=== PATIENT | female | born 1985 | race Caucasian/White ===

== ENCOUNTER 2016-06-11 09:48 | Emergency (ER) | payer OTHER ==
[~2016-06-11] VITALS: Ht 172.7 cm; Wt 90.0 kg
[~2016-06-11 09:48] MED LIST: CLIN1CAP5 PO; NAPR500 PO
[2016-06-11 09:51] VITALS: BP 134/76; PULSE 110; RESP 14; TEMP 98; O2SAT 100
[2016-06-11 10:53] LABS: AUTOMATED NEUTROPHIL # 3.8 TH/MM3 (1.8-7.7); BASOPHIL % 0.4 % (0.0-2.0); EOSINOPHIL # 0.6 TH/MM3 (0-0.4); EOSINOPHIL % 8.6 % (0.0-4.0); HEMO FLAGS DIFF FINAL; LYMPH % 24.7 % (9.0-44.0); LYMPHOCYTE # 1.7 TH/MM3 (1.0-4.8); MEAN CELL VOLUME 83.5 FL (80.0-100.0); MEAN CORPUSCULAR HEMOGLOBIN 28.8 PG (27.0-34.0); MEAN CORPUSCULAR HGB CONC 34.4 % (32.0-36.0); MONO % 9.4 % (0.0-8.0); NEUT % 56.9 % (16.0-70.0); PLATELET COUNT 170 TH/MM3 (150-450); RED BLOOD COUNT 4.07 MIL/MM3 (4.00-5.30); RED CELL DISTRIBUTION WIDTH 14.8 % (11.6-17.2); WHITE BLOOD COUNT 6.7 TH/MM3 (4.0-11.0)
[2016-06-11 10:54] LABS: BLOOD, URINE NEG (NEG); GLUCOSE,URINE NEG (NEG); KETONE, URINE NEG (NEG); NITRITE,URINE NEG (NEG); SQUAMOUS EPITHELIAL CELL URINE 9 /hpf (0-5); URINE COLOR YELLOW (YELLW/STRAW)
[2016-06-11 10:55] LABS: COMMENT (UR) CULT NOT INDICATED; CULTURE IF INDICATED CULT NOT INDICATED
[2016-06-11 11:03] LABS: ALT (GPT) 39 U/L (10-53); ANION GAP 5 MEQ/L (5-15); AST (GOT) 32 U/L (15-37); BICARBONATE 28.6 MEQ/L (21.0-32.0); BLOOD UREA NITROGEN 9 MG/DL (7-18); CHLORIDE 105 MEQ/L (98-107); GLOMERULAR FILTRATION RATE 79 ML/MIN (>89); POTASSIUM 3.8 MEQ/L (3.5-5.1); SODIUM (NA) 139 MEQ/L (136-145)
[2016-06-11] MEDS ORDERED: METH40TA2 PO (11:07)
[2016-06-11] MEDS ORDERED: METH40TA PO (11:07)
[2016-06-11 11:39] LABS: ALKALINE PHOSPHATASE 109 U/L (45-117); TOTAL BILIRUBIN ADULT 0.2 MG/DL (0.2-1.0)
--- NOTE | 2016-06-11 12:22 | RADRPT ---
EXAM DATE/TIME: 06/11/2016 11:38 [facility] COMPARISON: No previous studies available for comparison. INDICATIONS: Constipation. MEDICAL HISTORY: None. SURGICAL HISTORY: section. ENCOUNTER: Initial ACUITY: 1 week PAIN SCORE: 0/10 LOCATION: Bilateral abdomen FINDINGS: Large amount of stool is seen throughout the colon. There is no free air. There are no abdominal ca lcifications. Bowel gas pattern is unremarkable. CONCLUSION: Large amount of stool throughout the colon consistent with constipation. River Matt MD FACR on June 11, 2016 at 12:05 Board Certified Radiologist. This report was verified electronically.
[2016-06-11] MEDS ORDERED: COLY4000S PO (13:05)
--- NOTE | 2016-06-11 13:05 | PD ---
HPI Chief Complaint: GI Complaint Time Seen by Provider: 11:14 Travel History International Travel<30 days: No Contact w/Intl Traveler<30days: No Traveled to known affect area: No History of Present Illness HPI Patient is a 31-year-old female who is on methadone for chronic pain presents emergency department today for constipation for the past month. Patient states she has not had a bowel movement in over a month now has tried multiple regimens at home including Fleet's enema and MiraLAX Dulcolax etc. Patient states nothing is working. She presents today because over the past week she started to have some intermittent cramping pain as well. She denies any blood in the stool nausea nor vomiting. No fevers. She states as a child she had problems with regular bowel movements as well. [facility] Past Medical History ?: Unknown LMP: 05/09/2016 Past Surgical History Section: Yes Social History Alcohol Use: No Tobacco Use: Yes Substance Use: No Allergies-Medications (Allergen,Severity, Reaction): Coded Allergies: No Known Allergies (Unverified , 06/11/16) Reported Meds & Prescriptions Reported Meds & Active Scripts Active Golytely 236 gm (Polyethylene Glycol/Electrolytes) 4,000 Ml Soln 4,000 Ml PO ONCE Reported Methadone (Methadone HCl) 40 Mg Tab 80 Mg PO DAILY Methadose (Methadone HCl) 40 Mg Tab 80 Mg PO DAILY Review of Systems Except as stated in HPI: all other systems reviewed are Neg Physical Exam Narrative GENERAL: Well-developed well-nourished in no apparent distress SKIN: Warm and dry. HEAD: Atraumatic. Normocephalic. EYES: Pupils equal and round. No scleral icterus. No injection or drainage. ENT: No nasal bleeding or discharge. Mucous membranes pink and moist. NECK: Trachea midline. No JVD. CARDIOVASCULAR: Regular rate and rhythm. No murmur appreciated. RESPIRATORY: No accessory muscle use. Clear to auscultation. Breath sounds equal bilaterally. GASTROINTESTINAL: Abdomen soft, non-tender, minimally distended. Hepatic and splenic margins not palpable. Rectal exam was performed with female nurse wastewater operator present at all times, no stool in the rectum. No gross blood. MUSCULOSKELETAL: No obvious deformities. No clubbing. No cyanosis. No edema. NEUROLOGICAL: Awake and alert. No obvious cranial nerve deficits. Motor grossly within normal limits. Normal speech. PSYCHIATRIC: Appropriate mood and affect; insight and judgment normal. Data Data Last Documented VS Vital Signs Date Time Temp Pulse Resp B/P Pulse Ox O2 Delivery O2 Flow Rate FiO2 06/11/16 09:51 98.0 110 14 134/76 100 Room Air Orders Complete Blood Count With Diff (06/11/16 10:03) Comprehensive Metabolic Panel (06/11/16 10:03) Urinalysis - C+S If Indicated (06/11/16 10:03) Ed Urine Pregnancytest Poc (06/11/16 10:03) Iv Access Insert/Monitor (06/11/16 10:03) Oxygen Administration (06/11/16 10:03) Oximetry (06/11/16 10:03) Lipase (06/11/16 10:03) Abdomen, Kub Only (06/11/16 ) Labs Laboratory Tests Test 06/11/16 10:30 White Blood Count 6.7 TH/MM3 Red Blood Count 4.07 MIL/MM3 Hemoglobin 11.7 GM/DL Hematocrit 34.0 % Mean Corpuscular Volume 83.5 FL Mean Corpuscular Hemoglobin 28.8 PG Mean Corpuscular Hemoglobin 34.4 % Concent Red Cell Distribution Width 14.8 % Platelet Count 170 TH/MM3 Mean Platelet Volume 7.0 FL Neutrophils (%) (Auto) 56.9 % Lymphocytes (%) (Auto) 24.7 % Monocytes (%) (Auto) 9.4 % Eosinophils (%) (Auto) 8.6 % Basophils (%) (Auto) 0.4 % Neutrophils # (Auto) 3.8 TH/MM3 Lymphocytes # (Auto) 1.7 TH/MM3 Monocytes # (Auto) 0.6 TH/MM3 Eosinophils # (Auto) 0.6 TH/MM3 Basophils # (Auto) 0.0 TH/MM3 CBC Comment DIFF FINAL Differential Comment Urine Color YELLOW Urine Turbidity CLEAR Urine pH 7.0 Urine Specific Smiley 1.029 Urine Protein TRACE mg/dL Urine Glucose (UA) NEG mg/dL Urine Ketones NEG mg/dL Urine Occult Blood NEG Urine Nitrite NEG Urine Bilirubin NEG Urine Urobilinogen 2.0 MG/DL Urine Leukocyte Esterase TRACE Urine RBC LESS THAN 1 /hpf Urine WBC 1 /hpf Urine Squamous Epithelial 9 /hpf Cells Microscopic Urinalysis Comment CULT NOT INDICATED Sodium Level 139 MEQ/L Potassium Level 3.8 MEQ/L Chloride Level 105 MEQ/L Carbon Dioxide Level 28.6 MEQ/L Anion Gap 5 MEQ/L Blood Urea Nitrogen 9 MG/DL Creatinine 0.85 MG/DL Estimat Glomerular Filtration 79 ML/MIN Rate Random Glucose 93 MG/DL Calcium Level 8.2 MG/DL Total Bilirubin 0.2 MG/DL Aspartate Amino Transf 32 U/L (AST/SGOT) Alanine Aminotransferase 39 U/L (ALT/SGPT) Alkaline Phosphatase 109 U/L Total Protein 7.1 GM/DL Albumin 3.2 GM/DL Lipase 192 U/L [facility] Medical Decision Making Medical Screen Exam Complete: Yes Emergency Medical Condition: Yes Differential Diagnosis Abdominal cramping, , constipation, opiate-induced constipation, slow transit constipation. Narrative Course Patient is 31 year old female with fair amount of stool in colon. On chronic methadone. Has tried multiple regimens at home. Discussed trial of golytely is appropriate but if inaffective will need surgical consultation. She is agreeable. Stable for discharge at this time. Discussed return to ED criteria including fevers and worsening abdominal pain. Discussed if no better in 24-48 hours after use of golytely then to return to ed. Discussed follow up with ceramic painter for reduction of methadone scripts. Diagnosis Primary Impression: Constipation Qualified Code: K59.00 - Constipation, unspecified constipation type Med/Other Pt SpecificInfo: Prescription(s) given Scripts Peg-Electrolytes (Golytely 236 gm)4,000 Ml Soln4,000 Ml PO ONCE #1 CONTAINER Ref 0 Prov:Ildefonso Ortega MD 06/11/16 Disposition: 01 DISCHARGE HOME Condition: Stable Ildefonso Ortega MD Jun 11, 2016 13:05
== END 2016-06-11 13:56 | disposition home or self-care (01) ==
LOC: NEPB 09:48
DX: K59.00 Constipation, unspecified (principal); G89.29 Other chronic pain; Z72.0 Tobacco use; Z79.891 Long term (current) use of opiate analgesic
CPT/HCPCS: 74000; 80053; 81001; 83690; 84703; 85025; 99283

== ENCOUNTER 2016-06-13 11:07 | Emergency (ER) | payer OTHER ==
[~2016-06-13] VITALS: Ht 172.7 cm; Wt 90.0 kg
[~2016-06-13 11:07] MED LIST changes: -CLIN1CAP5 PO; +COLY4000S PO; +METH40TA PO; +METH40TA2 PO; -NAPR500 PO
[2016-06-13 11:08] VITALS: BP 142/80; PULSE 106; RESP 17; TEMP 97.7; O2SAT 100
--- NOTE | 2016-06-13 12:16 | PD ---
HPI Chief Complaint: GI Complaint Time Seen by Provider: 12:16 Travel History International Travel<30 days: No Contact w/Intl Traveler<30days: No Traveled to known affect area: No History of Present Illness HPI 31-year-old female who was seen yesterday for similar complaints presents the emergency department with ongoing constipation issues. Patient has a history of constipation in the past and is currently treated on methadone 80 mg daily which exacerbates the problem. Patient was discharged yesterday with a prescription for GoLYTELY which she took last evening, with some success. She then developed vomiting and abdominal pain since she was concerned about a possible blockage. Currently she states her abdominal pain is minimal fill nervous about possible small bowel obstruction or obstruction in the colon. Patient denies fever, chills, or other symptoms. Patient denies any known drug allergies. PFSH Past Medical History Diminished Hearing: No Gastrointestinal Disorders: Yes (CONSTIPATION) Medical other: Yes ([facility]) ?: Not LMP: May Para: 1 Past Surgical History Section: Yes (X , 2005) Gynecologic Surgery: Yes (C-SEC X1) Social History Alcohol Use: No Tobacco Use: Yes (05/05 PPD) Substance Use: No (HX OF DRUG USE) Allergies-Medications (Allergen,Severity, Reaction): Coded Allergies: No Known Allergies (Unverified , 06/13/16) Reported Meds & Prescriptions Reported Meds & Active Scripts Active Reported Methadose (Methadone HCl) 40 Mg Tab 160 Mg PO DAILY Review of Systems Except as stated in HPI: all other systems reviewed are Neg General / Constitutional: No: Fever, Chills Eyes: No: Visual changes HENT: No: Headaches Cardiovascular: No: Chest Pain or Discomfort Respiratory: No: Shortness of Breath Gastrointestinal: Positive: Nausea, Vomiting (previously.), Abdominal Pain ( improved from previous.), Constipation (chronic recently worse.), No: Diarrhea , Hematemesis, Hematochezia, Indigestion, Dysphagia, Loss of Appetite Genitourinary: No: Dysuria Musculoskeletal: No: Pain Skin: No Rash Neurologic: No: Weakness Psychiatric: No: Depression Endocrine: No: Polydipsia Hematologic/Lymphatic: No: Easy Bruising Physical Exam Narrative GENERAL: Patient appears in no acute distress. She is sitting upright on the exam table with her legs crossed underneath her. SKIN: Warm and dry. Normal color. Normal turgor. HEAD: Atraumatic. Normocephalic. EYES: Pupils equal and round. No scleral icterus. No injection or drainage. ENT: No nasal bleeding or discharge. Mucous membranes pink and moist. NECK: Trachea midline. No JVD. CARDIOVASCULAR: Regular rate and rhythm. RESPIRATORY: No accessory muscle use. Clear to auscultation. Breath sounds equal bilaterally. GASTROINTESTINAL: Abdomen soft, mild diffuse tenderness, mildly distended. Hepatic and splenic margins not palpable. MUSCULOSKELETAL: Extremities without clubbing, cyanosis, or edema. No obvious deformities. NEUROLOGICAL: Awake and alert. No obvious cranial nerve deficits. Motor grossly within normal limits. Five out of 5 muscle strength in the arms and legs. Normal speech. PSYCHIATRIC: Appropriate mood and affect; insight and judgment normal. Data Data Last Documented VS Vital Signs Date Time Temp Pulse Resp B/P Pulse Ox O2 Delivery O2 Flow Rate FiO2 06/13/16 11:08 97.7 106 17 142/80 100 Orders Urinalysis - C+S If Indicated (06/13/16 12:27) Abdomen, Flat & Upright (06/13/16 ) Labs Laboratory Tests Test 06/13/16 12:30 Urine Color LIGHT-YELLOW Urine Turbidity CLEAR Urine pH 7.5 Urine Specific Riley 1.007 Urine Protein NEG mg/dL Urine Glucose (UA) NEG mg/dL Urine Ketones NEG mg/dL Urine Occult Blood NEG Urine Nitrite NEG Urine Bilirubin NEG Urine Urobilinogen LESS THAN 2.0 MG/DL Urine Leukocyte Esterase NEG Urine RBC LESS THAN 1 /hpf Urine WBC 1 /hpf Urine Squamous Epithelial 6 /hpf Cells Urine Bacteria OCC /hpf Microscopic Urinalysis Comment CULT NOT INDICATED MDM Medical Decision Making Medical Screen Exam Complete: Yes Emergency Medical Condition: Yes Differential Diagnosis Abdominal pain. Constipation. Possible obstruction. Perforation. Narrative Course Patient medically stable at time of exam. Urinalysis is ordered as patient complained of urinary frequency. Urine is normal. KUB and upright is repeated to compare to yesterday. KUB and upright shows no obvious signs of mechanical obstruction, and less stools present compared to yesterday. Patient is discharged home with a prescription for MiraLAX twice daily. Patient should finish the GoLYTELY that she has last from yesterday. Patient is encouraged to drink plenty of fluids and walk frequently as well as follow with her primary care physician as needed. Patient can return to emergency department worsening symptoms if necessary. Diagnosis Primary Impression: Constipation Qualified Code: K59.03 - Drug-induced constipation Referrals: Primary Care Physician Patient Instructions: Constipation (ED), General Instructions Additional Instructions: KUB and upright shows no obvious signs of mechanical obstruction, and less stools present compared to yesterday. Patient is discharged home with a prescription for MiraLAX twice daily. Patient should finish the GoLYTELY that she has last from yesterday. Patient is encouraged to drink plenty of fluids and walk frequently as well as follow with her primary care physician as needed. Patient can return to emergency department worsening symptoms if necessary. Med/Other Pt SpecificInfo: Prescription(s) given Disposition: DISCHARGE HOME Condition: Stable Riley Renae Jun 13, 2016 12:16
[2016-06-13 12:57] LABS: BACTERIA, URINE OCC /hpf; BLOOD, URINE NEG (NEG); COMMENT (UR) CULT NOT INDICATED; CULTURE IF INDICATED CULT NOT INDICATED; GLUCOSE,URINE NEG (NEG); KETONE, URINE NEG (NEG); NITRITE,URINE NEG (NEG); PH, URINE 7.5 (5.0-8.5); SQUAMOUS EPITHELIAL CELL URINE 6 /hpf (0-5); URINE COLOR LIGHT-YELLOW (YELLW/STRAW)
[2016-06-13] MEDS ORDERED: MIRA33504 PO (13:29)
[2016-06-13 13:30] VITALS: BP 120/77; TEMP 98.1
--- NOTE | 2016-06-13 14:55 | RADRPT ---
EXAM DATE/TIME: 06/13/2016 13:10 [facility] COMPARISON: No previous studies available for comparison. INDICATIONS : Bloating, vomiting, constipation. MEDICAL HISTORY : None. SURGICAL HISTORY : section. ENCOUNTER: Initial ACUITY: 1 month PAIN SCORE: 0/10 LOCATION: Abdomen. FINDINGS: There is no bowel obstruction, ileus or perforation. Scattered phleboliths are noted within the left hemipelvis. No radiopaque densities resembling calcified urinary calculi are noted. CONCLUSION: Unremarkable abdomen. Ildefonso Hayden MD on June 13, 2016 at 14:48 Board Certified Radiologist. This report was verified electronically.
== END 2016-06-13 13:30 | disposition home or self-care (01) ==
LOC: NEPB 11:07
DX: K59.03 Drug induced constipation (principal); R11.10 Vomiting, unspecified; R10.9 Unspecified abdominal pain; R35.0 Frequency of micturition; F17.200 Nicotine dependence, unspecified, uncomplicated; Z79.899 Other long term (current) drug therapy
CPT/HCPCS: 74020; 81001; 99284